=== PATIENT | female | born 1960 | race Caucasian/White ===

== ENCOUNTER 2018-12-16 11:42 | Emergency (ER) | payer OTHER ==
[2018-12-16] MEDS ORDERED: Ondansetron 4 MG Tab.DIS PO ONE (12:21)
[2018-12-16] MEDS ORDERED: Atropine/Diphenoxylate 0.025-2.5 MG Tab PO ONE (12:22)
[2018-12-16] MEDS ORDERED: Lactated Ringers 1,000 ML IV ONE (12:22)
[2018-12-16] MEDS ORDERED: Acetaminophen 500 MG Tab PO ONE (12:23)
--- NOTE | 2018-12-16 12:31 | EDM.PDOC ---
ED HPI GENERAL MEDICAL PROBLEM - General Chief Complaint: Gastrointestinal Problem Stated Complaint: SICK/FLU & RUNNY DIARRHEA Time Seen by Provider: 12/16/18 12:15 Source of Information: Reports: Patient, Old Records, RN History Limitations: Reports: No Limitations - History of Present Illness INITIAL COMMENTS - FREE TEXT/NARRATIVE: 58 yo female here with nausea, vomiting, and diarrhea for 2 days. The diarrhea is her worse sx. They had family visit over the weekend that were just getting over these same sx's. No fever or bleeding. Took one dose of Peptobismol today only. Minimally dizzy with standing. Onset: Gradual Onset Date: 12/14/18 Duration: Day(s): (2), Waxing/Waning Severity: Moderate Improves with: Reports: None Worsens with: Reports: Eating Context: Reports: Sick Contact Associated Symptoms: Reports: Nausea/Vomiting. Denies: Fever/Chills Treatments [employer]CH[employer]IC: Reports: Other (see below) (Peptobismol) Headache Pain Score (Numeric/FACES): 6 - Related Data Allergies Allergy/AdvReac Type Severity Reaction Status Date / Time meperidine [From Demerol] Allergy Rash Verified 12/16/18 12:09 Home Meds: Home Meds Amphetamine/Dextroamphetamine [Adderall XR] 25 mg PO DAILY 12/16/18 [History] Esterdyal Patch 1 patch TOP ASDIRECTED 12/16/18 [History] Levothyroxine [Synthroid] 100 mcg PO ACBREAKFAST 12/16/18 [History] Omeprazole 20 mg PO DAILY 12/16/18 [History] Ondansetron [Zofran ODT] 4 mg PO Q6H PRN #7 tab.dis 12/16/18 [Rx] Past Medical History HEENT History: Reports: Cataract Gastrointestinal History: Reports: GERD 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: Endocrine/Metabolic History: Reports: Hypothyroidism Hematologic History: Reports: Blood Transfusion(s) - Past Surgical History HEENT Surgical History: Reports: Cataract Surgery, LASIK Other HEENT Surgeries/Procedures: both eyes GI Surgical History: Reports: Colonoscopy Female Surgical History: Reports: Hysterectomy, Salpingo-Oophorectomy Social & Family History - Tobacco Use Smoking Status *Q: Never Smoker - Caffeine Use Caffeine Use: Reports: Coffee - Recreational Drug Use Recreational Drug Use: No ED ROS GENERAL - Review of Systems Review Of Systems: See Below Constitutional: Reports: Malaise. Denies: Fever, Chills HEENT: Reports: No Symptoms Respiratory: Reports: No Symptoms Cardiovascular: Reports: No Symptoms GI/Abdominal: Reports: Diarrhea, Decreased Appetite, Nausea, Vomiting. Denies: Black Stool, Bloody Stool, Constipation, Hematemesis, Hematochezia : Reports: No Symptoms Musculoskeletal: Reports: No Symptoms Skin: Reports: No Symptoms Neurological: Reports: No Symptoms Psychiatric: Reports: No Symptoms ED EXAM, GI/ABD - Physical Exam Exam: See Below Exam Limited By: No Limitations General Appearance: Alert, WD/WN, No Apparent Distress Eyes: Bilateral: Normal Appearance Ears: Normal External Exam, Normal Canal, Hearing Grossly Normal, Normal TMs Nose: Normal Inspection, No Blood Throat/Mouth: Normal Inspection, Normal Lips, Normal Oropharynx, Normal Voice, No Airway Compromise Head: Atraumatic, Normocephalic Neck: Normal Inspection Respiratory/Chest: No Respiratory Distress, Lungs Clear, Normal Breath Sounds, No Accessory Muscle Use Cardiovascular: Regular Rate, Rhythm, No Edema GI/Abdominal Exam: Normal Bowel Sounds, Soft, Non-Tender, No Distention Back Exam: Normal Inspection. No: CVA Tenderness (R), CVA Tenderness (L) Extremities: Normal Inspection, Normal Range of Motion, Non-Tender, No Pedal Edema Neurological: Alert, Oriented, CN II-XII Intact, Normal Cognition, No Motor/ Sensory Deficits Psychiatric: Normal Affect, Normal Mood Skin Exam: Warm, Dry, Intact, Normal Color, No Rash Course - Vital Signs Text/Narrative:: Feeling better after Zofran ODT. Last Recorded V/S: Last Vital Signs Temp 36.3 C 12/16/18 12:08 Pulse 54 L 12/16/18 12:08 Resp 16 12/16/18 12:08 BP 157/79 H 12/16/18 12:08 Pulse Ox 94 L 12/16/18 12:08 - Orders/Labs/Meds Orders: Active Orders 24 hr Category Date Time Status Lactated Ringers [Ringers, Lactated] 1,000 ml Med 12/16/18 12:22 Active IV BOLUS Medication Orders Lactated Ringer's (Ringers, Lactated) 1,000 mls @ 1,000 mls/hr IV BOLUS ONE Stop: 12/16/18 13:21 Last Admin: 12/16/18 12:46 Dose: 1,000 mls/hr Labs: Laboratory Tests 12/16/18 Range/Units 12:29 Sodium 137 L (140-148) mmol/L Potassium 3.9 (3.6-5.2) mmol/L Chloride 99 L (100-108) mmol/L Carbon Dioxide 27 (21-32) mmol/L Anion Gap 14.9 H (5.0-14.0) mmol/L BUN 23 H (7-18) mg/dL Creatinine 0.8 (0.6-1.0) mg/dL Est Cr Clr Drug Dosing 64.58 mL/min Estimated GFR (MDRD) > 60 (>60) Glucose 106 (74-106) mg/dL Calcium 9.1 (8.5-10.1) mg/dL Meds: Medications Generic Name Dose Route Start Last Admin Trade Name Freq PRN Reason Stop Dose Admin Lactated Ringer's 1,000 mls @ 1,000 mls/hr 12/16/18 12:22 12/16/18 12:46 Ringers, Lactated IV 12/16/18 13:21 1,000 mls/hr BOLUS ONE Administration Discontinued Medications Generic Name Dose Route Start Last Admin Trade Name Freq PRN Reason Stop Dose Admin Acetaminophen 1,000 mg 12/16/18 12:23 12/16/18 12:46 Tylenol Extra Strength PO 12/16/18 12:24 1,000 mg ONETIME ONE Administration Diphenoxylate HCl/Atropine 2 tab 12/16/18 12:22 12/16/18 12:46 Lomotil 0.025-2.5 Mg PO 12/16/18 12:23 2 tab ONETIME ONE Administration Ondansetron HCl 4 mg 12/16/18 12:21 12/16/18 12:46 Zofran Odt PO 12/16/18 12:22 4 mg ONETIME ONE Administration Departure - Departure Time of Disposition: 14:00 Disposition: Home, Self-Care 01 Condition: Fair Clinical Impression: Nausea, vomiting and diarrhea - Discharge Information *PRESCRIPTION DRUG MONITORING PROGRAM REVIEWED*: No *COPY OF PRESCRIPTION DRUG MONITORING REPORT IN PATIENT JESSY: No Prescriptions: Ondansetron [Zofran ODT] 4 mg PO Q6H PRN #7 tab.dis PRN Reason: Nausea Instructions: Nausea and Vomiting, Adult, Diarrhea, Adult Referrals: Kirk Vázquez [Primary Care Provider] - Forms: ED Department Discharge Additional Instructions: Take loperamide per package instructions as needed for diarrhea. Take Zofran as directed for nausea control. Clear liquids only today until feeling a lot better , then advance diet as tolerated. Rest today. Recheck if worse. - My Orders Last 24 Hours: My Active Orders 12/16/18 12:22 Lactated Ringers [Ringers, Lactated] 1,000 ml IV BOLUS - Assessment/Plan Last 24 Hours: My Active Orders 12/16/18 12:22 Lactated Ringers [Ringers, Lactated] 1,000 ml IV BOLUS
== END 2018-12-16 14:14 | disposition home or self-care (01) ==
LOC: JP.ED 11:42
DX: R11.2 Nausea with vomiting, unspecified (principal); R19.7 Diarrhea, unspecified; E03.9 Hypothyroidism, unspecified; K21.9 Gastro-esophageal reflux disease without esophagitis; Z88.8 Allergy status to other drugs, medicaments and biological substances; Z79.899 Other long term (current) drug therapy
CPT/HCPCS: 36415; 80048; 96360; 99284; A9270; J7120

== ENCOUNTER 2020-02-23 10:55 | Emergency (ER) | payer OTHER ==
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
[2020-02-23] MEDS ORDERED: Ketorolac 30 MG/ML SDV IVPUSH ONE (11:29)
--- NOTE | 2020-02-23 12:24 | CT ---
Cervical Spine wo Cont CLINICAL HISTORY: Neck pain, injury TECHNIQUE: Multiple CT sections were taken through the cervical spine in the transaxial projection. Coronal and sagittal views were reconstructed. Images were viewed at bone as well as soft tissue windows on a digital workstation. Auto dosage reduction and iterative reconstruction techniques employed. FINDINGS: Sagittal images show some diffuse degenerative disc disease most notable at C5-6. There is a complex spondylosis. There is osteoarthritis throughout the facets. This is subcortical cysts in the C7 superior articular facet. Alignment is maintained. There is no prevertebral swelling. There is spondylosis and uncovertebral joint spurring at C5-6. This causes bilateral neural foraminal encroachment right greater than left. IMPRESSION: No fracture or dislocation Diffuse degenerative disc changes and facet osteoarthropathy Bilateral neural foraminal encroachment C5-6, right greater than left. There are a few scattered nonspecific lymph nodes posteriorly
== END 2020-02-23 13:00 | disposition home or self-care (01) ==
LOC: JP.ED 10:55
DX: S40.012A Contusion of left shoulder, initial encounter (principal); S16.1XXA Strain of muscle, fascia and tendon at neck level, initial encounter; K21.9 Gastro-esophageal reflux disease without esophagitis; E03.9 Hypothyroidism, unspecified; Z79.899 Other long term (current) drug therapy; Z88.5 Allergy status to narcotic agent; V19.9XXA Pedal cyclist (driver) (passenger) injured in unspecified traffic accident, initial encounter; Y92.410 Unspecified street and highway as the place of occurrence of the external cause
CPT/HCPCS: 72125; 96374; 99284; J1885

== ENCOUNTER 2024-05-23 01:51 | Emergency (ER) | payer OTHER ==
[2024-05-23] MEDS: methylPREDNISolone Sodium Succinate 40 MG/1 ML SDV IVPUSH ONE (02:34)
[2024-05-23] MEDS: cefTRIAXone 1 GM in Sodium Chloride 0.9% 50 ML IV ONE (02:34)
== END 2024-05-23 03:11 | disposition home or self-care (01) ==
LOC: JP.ED 01:51
DX: H10.89 Other conjunctivitis (principal); I10 Essential (primary) hypertension; I25.2 Old myocardial infarction; Z95.5 Presence of coronary angioplasty implant and graft; Z79.899 Other long term (current) drug therapy; Z88.5 Allergy status to narcotic agent
CPT/HCPCS: 87070; 87077; 87184; 87205; 96365; 96375; 99283; 99283-25; J0696; J2919; J3490